=== PATIENT | female | born 1995 | race Caucasian/White ===

== ENCOUNTER 2019-09-27 19:24 | Emergency (ER) | payer OTHER ==
[~2019-09-27] VITALS: Ht 170.2 cm; Wt 61.2 kg
[~2019-09-27 19:24] MED LIST: NOHOMEMEDICATIONS; PERCOCET 5-3251 EACH PO; TRAMADOL 50 MG50 MG PO; ZOFRAN4 MG PO
[2019-09-27 22:12] LABS: ABSOLUTE BASOPHILS 0.1 thou/uL (0.0-0.2); ABSOLUTE EOSINOPHILS 0.5 thou/uL (0.0-0.7); ABSOLUTE LYMPHOCYTES 2.2 thou/uL (0.8-5.3); ABSOLUTE MONOCYTES 0.5 thou/uL (0.0-1.2); ABSOLUTE NEUTROPHILS 5.8 thou/uL (1.6-8.1); BASOPHILS 1.2 %; EOSINOPHILS 5.8 %; HEMATOCRIT 39.3 % (37.0-47.0); HEMOGLOBIN 13.3 gm/dL (12.0-15.0); LYMPHOCYTES 23.9 %; MCH 30.2 pg (26.0-34.0); MCHC 33.9 g/dL (28.0-37.0); MPV 7.8 fl. (7.2-11.1); NUCLEATED RBCS 0 /100WBC; PLATELET COUNT* 342 thou/uL (150-400); POLYS 64.1 %; RBC 4.41 mil/uL (4.20-5.00); RDW-CV 13.4 % (10.5-14.5); WBC 9.1 thou/uL (4.0-11.0)
[2019-09-27 22:17] LABS: CALCIUM 8.4 mg/dL (8.5-10.1); CREATININE 0.7 mg/dL (0.6-1.3); POTASSIUM 3.6 mmol/L (3.5-5.1)
[2019-09-27 22:21] LABS: ALBUMIN 4.1 g/dL (3.4-5.0); TOTAL BILIRUBIN 0.3 mg/dL (<0.1-1.0)
[2019-09-27] MEDS ORDERED: NORCO 5-325 TA1 EAC1 PO (22:35)
[2019-09-27] MEDS ORDERED: REGLAN10 MG PO (22:35)
[2019-09-27] MEDS ORDERED: IBUPROFEN 600600 M1 PO (22:35)
[2019-09-27 22:56] VITALS: BP 125/75
== END 2019-09-27 22:57 | disposition home or self-care (01) ==
LOC: M.ERS 19:24
PROVIDERS: Nurse Practitioner Family
DX: M25.562 Pain in left knee (principal); R60.0 Localized edema